=== PATIENT | male | born 1950 | race Caucasian/White ===

== ENCOUNTER 2020-08-17 23:30 | Inpatient (IN) | payer MEDICARE, MEDICAID ==
[~2020-08-17] VITALS: Ht 165.1 cm; Wt 73.6 kg
[~2020-08-17 23:30] MED LIST: CARV6.252 PO; FURO40TA6 PO; LISI-167 PO
--- NOTE | 2020-08-17 23:42 | NUR ---
Patient BIB ambulance c/o CP, dizziness, and weakness x1 week. Patient states he has fallen a few times but denies trauma. He also c/o diarrhea and states the stool was dark in color last week. He has had decreased urination and burning with urination. Per EMS, patient's BP was 90s systolic initially but decreased to 70s systolic. EMS admin 250mL NS bolus then initiated Levophed at 8mcg/min. BP increased to 90s systolic. Patient is in NAD. REspirations even and unlabored.
[2020-08-18 00:28] LABS: BASOPHILS % (AUTO) 0 % (0-1); EOSINOPHILS % (AUTO) 0 % (1-7); LYMPHOCYTES % (AUTO) 6 % (22-44); MEAN CORPUSCULAR HEMOGLOBIN 29.9 pg (27.5-34.5); MEAN CORPUSCULAR HGB CONC 32.1 g/dL (33.2-36.2); MEAN PLATELET VOLUME 8.3 fL (7.4-10.4); MONOCYTES % (AUTO) 3 % (2-9); NEUTROPHILS % (AUTO) 91 % (42-75); PLATELET COUNT 214 x10^3/uL (130-400); RED BLOOD COUNT 4.58 x10^6/uL (4.38-5.82); RED CELL DISTRIBUTION WIDTH 14.6 % (9.4-14.8)
[2020-08-18 00:32] LABS: MD NO
[2020-08-18 00:39] LABS: INTERNATIONAL NORMALIZED RATIO 1.24 (0.93-1.1); PROTHROMBIN TIME 12.8 Seconds (9.6-11.5)
[2020-08-18 00:41] LABS: ALANINE AMINOTRANSFERASE 13 U/L (12-78); ALBUMIN 3.5 g/dL (3.4-5.0); ANION GAP 8 mmol/L (5-15); CALCIUM 8.7 mg/dL (8.5-10.1); CHLORIDE 106 mmol/L (98-107)
[2020-08-18 00:45] LABS: ALKALINE PHOSPHATASE 69 U/L (45-117); BILIRUBIN,TOTAL 2.1 mg/dL (0.2-1.0); TOTAL PROTEIN 6.7 g/dL (6.4-8.2); TROPONIN I < 0.015 ng/mL (0.000-0.045)
--- NOTE | 2020-08-18 00:59 | NUR ---
Fluid was not infusing due to position of patient's arm. Repositioned patient to allow fluid to flow. Patient c/o global pain.
--- NOTE | 2020-08-18 01:13 | NUR ---
Report given to CURT Krause. Patient care transferred.
[2020-08-18] MEDS ORDERED: FENTANYL PF 100 MCG/2ML IVPush PRN ×2 (02:00→22:25)
[2020-08-18] MEDS ORDERED: SODIUM CHLORIDE 0.9% 1,000ML IVBOLUS ONE ×4 (02:00→13:00)
[2020-08-18] MEDS ORDERED: FENTANYL PF 100 MCG/2ML ONE (02:08)
[2020-08-18 02:10] LABS: MICROSCOPIC INDICATED
[2020-08-18] MEDS ORDERED: CEFTRIAXONE PMX 1GM/50ML 50 ML IV ONE (02:30)
[2020-08-18] MEDS ORDERED: VANCOMYCIN PER PHARMACY MC PRN ×2 (02:30→20:57)
[2020-08-18] MEDS ORDERED: CEFTRIAXONE PMX 1GM/50ML 50 ML ONE (02:36)
--- NOTE | 2020-08-18 02:40 | NUR ---
X2 SETS OF BLOOD CULTURES DRAWN PRIOR TO ABX ADMINISTRATION.
--- NOTE | 2020-08-18 02:50 | NUR ---
PT MEDICATED PER JAN. CALL LIGHT WITHIN REACH, ROOM DIMMED FOR PT COMFORT.
[2020-08-18] MEDS ORDERED: VANCOMYCIN 1,400 MG in SODIUM CHLORIDE 0.9% 250 ML IV ONE (03:00)
[2020-08-18] MEDS ORDERED: RIVA2.5T PO (03:27)
--- NOTE | 2020-08-18 03:39 | NUR ---
PT UPDATED ON POC, CALL LIGHT WITHIN REACH, ALL MONITORING IN PLACE.
[2020-08-18] MEDS ORDERED: MELATONIN 5 MG TABLET PO PRN (04:00)
[2020-08-18] MEDS ORDERED: ONDANSETRON 2MG/ML, 2ML IVPush PRN (04:00)
[2020-08-18] MEDS ORDERED: PHARMACY MAY ADJ FOR RENAL FX MC PRN (04:00)
[2020-08-18 05:03] VITALS: BP 105/68
[2020-08-18] MEDS: HYDROcodone/APAP 5/325 TABLET PO PRN ×4 (05:21→20:34)
[2020-08-18] MEDS ORDERED: ALBUTEROL HFA 90 MCG/SPRAY INH PRN (05:30)
[2020-08-18] MEDS: LACTATED RINGERS 1,000 ML IV SCH (05:52)
[2020-08-18 07:30] VITALS: BP 95/59
[2020-08-18] MEDS: FLUTICASONE/VILANTEROL 100-25MCG/INH INH SCH (09:00)
[2020-08-18] MEDS: CARVEDILOL 6.25 MG TABLET PO SCH ×2 (09:17→20:35)
[2020-08-18] MEDS: APIXABAN 5 MG TABLET PO SCH ×2 (09:17→20:35)
[2020-08-18] MEDS: ACETAMINOPHEN 325 MG TABLET PO PRN ×2 (11:59→16:56)
[2020-08-18 12:38] VITALS: BP 87/47
[2020-08-18 12:39] VITALS: BP 88/44
[2020-08-18 13:29] VITALS: BP 95/61
[2020-08-18 13:40] LABS: CHLORIDE,URINE RANDOM 66 mmol/L; POTASSIUM,URINE RANDOM 42 mmol/L; SODIUM,URINE RANDOM 67 mmol/L
[2020-08-18 19:09] VITALS: BP 90/59
[2020-08-18] MEDS ORDERED: FAMOTIDINE 10 MG TAB PO SCH (21:00)
[2020-08-18] MEDS ORDERED: FAMOTIDINE 40 MG TABLET ONE (21:20)
[2020-08-18] MEDS ORDERED: FAMOTIDINE 20 MG TABLET PO ONE (21:30)
[2020-08-19 01:02] VITALS: BP 96/63
[2020-08-19] MEDS: HYDROcodone/APAP 5/325 TABLET PO PRN ×5 (01:05→22:11)
[2020-08-19] MEDS: LACTATED RINGERS 1,000 ML IV SCH ×3 (04:23→15:55)
[2020-08-19] MEDS: CEFTRIAXONE PMX 1GM/50ML 50 ML IV SCH (04:23)
[2020-08-19 05:36] LABS: BASOPHILS % (AUTO) 0 % (0-1); EOSINOPHILS % (AUTO) 0 % (1-7); LYMPHOCYTES % (AUTO) 6 % (22-44); MEAN CORPUSCULAR HEMOGLOBIN 30.6 pg (27.5-34.5); MEAN CORPUSCULAR HGB CONC 32.7 g/dL (33.2-36.2); MONOCYTES % (AUTO) 5 % (2-9); NEUTROPHILS % (AUTO) 89 % (42-75); PLATELET COUNT 126 x10^3/uL (130-400); RED BLOOD COUNT 3.75 x10^6/uL (4.38-5.82); RED CELL DISTRIBUTION WIDTH 14.8 % (9.4-14.8)
[2020-08-19 05:38] LABS: ANION GAP 6 mmol/L (5-15); CALCIUM 8.2 mg/dL (8.5-10.1); CHLORIDE 113 mmol/L (98-107); CREATININE 1.26 mg/dL (0.7-1.3)
[2020-08-19 06:05] LABS: MD NO
[2020-08-19] MEDS: FLUTICASONE/VILANTEROL 100-25MCG/INH INH SCH (08:14)
[2020-08-19 08:36] VITALS: BP 104/64
[2020-08-19] MEDS: APIXABAN 5 MG TABLET PO SCH ×2 (08:50→19:38)
[2020-08-19] MEDS: CARVEDILOL 6.25 MG TABLET PO SCH ×2 (08:52→19:38)
[2020-08-19] MEDS ORDERED: PHENAZOPYRIDINE 100 MG TABLET PO PRN (13:00)
[2020-08-19 14:22] VITALS: BP 96/60
[2020-08-19 15:00] VITALS: BP 106/68
[2020-08-19] MEDS: TAMSULOSIN 0.4 MG CAP.ER.24H PO SCH (15:06)
[2020-08-19 18:23] VITALS: BP 96/62
[2020-08-19] MEDS: FAMOTIDINE 20 MG TABLET PO SCH (19:38)
[2020-08-20 01:07] VITALS: BP 103/64
[2020-08-20] MEDS: HYDROcodone/APAP 5/325 TABLET PO PRN ×5 (03:18→21:07)
[2020-08-20] MEDS: CEFTRIAXONE PMX 1GM/50ML 50 ML IV SCH (03:57)
[2020-08-20] MEDS: LACTATED RINGERS 1,000 ML IV SCH (03:57)
[2020-08-20 05:45] LABS: BASOPHILS % (AUTO) 1 % (0-1); EOSINOPHILS % (AUTO) 1 % (1-7); LYMPHOCYTES % (AUTO) 10 % (22-44); MEAN CORPUSCULAR HEMOGLOBIN 30.3 pg (27.5-34.5); MEAN CORPUSCULAR HGB CONC 32.3 g/dL (33.2-36.2); MEAN PLATELET VOLUME 9.1 fL (7.4-10.4); MONOCYTES % (AUTO) 6 % (2-9); NEUTROPHILS % (AUTO) 83 % (42-75); PLATELET COUNT 135 x10^3/uL (130-400); RED BLOOD COUNT 3.83 x10^6/uL (4.38-5.82); RED CELL DISTRIBUTION WIDTH 14.7 % (9.4-14.8)
[2020-08-20 05:47] LABS: ANION GAP 6 mmol/L (5-15); CALCIUM 8.2 mg/dL (8.5-10.1); CHLORIDE 111 mmol/L (98-107); CREATININE 0.94 mg/dL (0.7-1.3)
[2020-08-20 06:40] LABS: MD SCAN
[2020-08-20 07:30] VITALS: BP 137/83
[2020-08-20] MEDS: APIXABAN 5 MG TABLET PO SCH ×2 (07:52→21:06)
[2020-08-20] MEDS: TAMSULOSIN 0.4 MG CAP.ER.24H PO SCH (07:52)
[2020-08-20] MEDS: CARVEDILOL 6.25 MG TABLET PO SCH ×2 (07:53→21:06)
[2020-08-20] MEDS: FLUTICASONE/VILANTEROL 100-25MCG/INH INH SCH (08:18)
[2020-08-20] MEDS: MAGNESIUM HYDROXIDE 8%, 30ML UDC PO SCH ×2 (09:48→21:06)
[2020-08-20 15:09] VITALS: BP 125/76
[2020-08-20 20:54] VITALS: BP 144/89
[2020-08-20] MEDS: FAMOTIDINE 20 MG TABLET PO SCH (21:07)
[2020-08-21 01:11] VITALS: BP 134/75
[2020-08-21] MEDS: HYDROcodone/APAP 5/325 TABLET PO PRN ×4 (01:14→13:50)
[2020-08-21] MEDS: CEFTRIAXONE PMX 1GM/50ML 50 ML IV SCH (03:41)
[2020-08-21 06:21] LABS: BASOPHILS % (AUTO) 1 % (0-1); EOSINOPHILS % (AUTO) 2 % (1-7); LYMPHOCYTES % (AUTO) 13 % (22-44); MEAN CORPUSCULAR HEMOGLOBIN 30.3 pg (27.5-34.5); MEAN PLATELET VOLUME 8.8 fL (7.4-10.4); MONOCYTES % (AUTO) 8 % (2-9); NEUTROPHILS % (AUTO) 77 % (42-75); PLATELET COUNT 182 x10^3/uL (130-400); RED BLOOD COUNT 3.84 x10^6/uL (4.38-5.82); RED CELL DISTRIBUTION WIDTH 14.9 % (9.4-14.8)
[2020-08-21 06:26] LABS: ANION GAP 5 mmol/L (5-15); CALCIUM 8.5 mg/dL (8.5-10.1); CHLORIDE 108 mmol/L (98-107)
[2020-08-21 06:27] LABS: CREATININE 0.87 mg/dL (0.7-1.3)
[2020-08-21 06:47] VITALS: BP 152/87
[2020-08-21 06:59] LABS: MD SCAN
[2020-08-21] MEDS: FLUTICASONE/VILANTEROL 100-25MCG/INH INH SCH (07:30)
[2020-08-21] MEDS ORDERED: SULFAMETH./TRIMETHOPRIM DS 800MG/160MG TABLET PO SCH (09:00)
[2020-08-21] MEDS: MAGNESIUM HYDROXIDE 8%, 30ML UDC PO SCH (09:34)
[2020-08-21] MEDS: CARVEDILOL 6.25 MG TABLET PO SCH (09:35)
[2020-08-21 09:36] VITALS: BP 131/82
[2020-08-21] MEDS: APIXABAN 5 MG TABLET PO SCH (09:36)
[2020-08-21] MEDS: TAMSULOSIN 0.4 MG CAP.ER.24H PO SCH (09:36)
[2020-08-21 12:10] VITALS: BP 134/78
[2020-08-21] MEDS ORDERED: APIX5TAB PO (15:26)
[2020-08-21] MEDS ORDERED: PHEN-582 PO (15:26)
[2020-08-21] MEDS ORDERED: Sulfameth./Trimethoprim Ds PO (15:26)
[2020-08-21] MEDS ORDERED: TAMS-11 PO (15:26)
== END 2020-08-21 16:38 | disposition left against medical advice (07) | DRG 871 ==
LOC: ED 08-18 00:12 → EDIP 08-18 03:45 → 4NE 08-18 03:46 → 3N 08-18 11:39
PROVIDERS: ADMIT Family Medicine; ATTEND Internal Medicine
PROC: 0T9B70Z Drainage of Bladder with Drainage Device, Via Natural or Artificial Opening (ICD-10-PCS; principal; 2020-08-18)
DX: A41.9 Sepsis, unspecified organism (principal); N17.0 Acute kidney failure with tubular necrosis; R65.21 Severe sepsis with septic shock; N39.0 Urinary tract infection, site not specified; J44.1 Chronic obstructive pulmonary disease with (acute) exacerbation; E78.5 Hyperlipidemia, unspecified; E86.0 Dehydration; I11.0 Hypertensive heart disease with heart failure; I48.91 Unspecified atrial fibrillation; I50.9 Heart failure, unspecified; Z53.29 Procedure and treatment not carried out because of patient's decision for other reasons; F17.210 Nicotine dependence, cigarettes, uncomplicated; Z79.01 Long term (current) use of anticoagulants; Z85.01 Personal history of malignant neoplasm of esophagus; Z86.711 Personal history of pulmonary embolism; Z86.718 Personal history of other venous thrombosis and embolism; Z99.81 Dependence on supplemental oxygen; R33.9 Retention of urine, unspecified; R63.4 Abnormal weight loss; Z68.27 Body mass index [BMI] 27.0-27.9, adult
CPT/HCPCS: 36415; 71045; 76770; 80048; 80053; 81001; 82436; 82570; 83605; 83880; 84133; 84145; 84300; 84484; 85025; 85610; 85730; 86850; 86900; 87040; 87077; 87086; 87186; 93005; 94640; 96361; 96365; 99291; G0378; J0696; J3010; J3370; J7030; J7050; J7120